=== PATIENT | female | born 1975 | race Caucasian/White ===

== ENCOUNTER 2020-03-09 11:47 | Outpatient (CLI) | payer BC, SELFPAY ==
--- NOTE | 2020-03-09 11:58 | MM_ITS ---
WS: [id number] BILATERAL DIGITAL SCREENING MAMMOGRAPHY WITH CAD CLINICAL INFORMATION: SCREEN HISTORY: Screening mammogram. No current complaints. COMPARISON: June 26, 2018 TECHNIQUE: Bilateral CC and MLO views. FINDINGS: The breasts are composed of heterogeneous fibroglandular density tissue, which can limit the detectio n of small underlying mass lesions. No suspicious mass, asymmetry, calcifications, or architectural d istortion. No evidence of malignancy. A few benign punctate calcifications. MM/[place] [id number] IMPRESSION: BI-RADS: 2-Benign FOLLOW UP: 1 Year Follow-up Recommend return to annual screening mammography.
== END 2020-03-09 11:48 | disposition home or self-care (01) ==
PROVIDERS: PCP Family Medicine; Visit Provider Obstetrics & Gynecology
DX: Z12.31 Encounter for screening mammogram for malignant neoplasm of breast (principal)
CPT/HCPCS: 77067

== ENCOUNTER → 2020-07-15 14:36 | Outpatient (BNVA) | payer BC, SELFPAY | PROVIDERS: PCP Family Medicine; Visit Provider Internal Medicine | DX: U07.1 COVID-19 (principal) | CPT/HCPCS: 87635 ==

== ENCOUNTER → 2022-08-18 15:14 | Outpatient (BNVA) | payer BC, SELFPAY | PROVIDERS: PCP Family Medicine; Visit Provider Nurse Practitioner Women's Health | DX: Z01.419 Encounter for gynecological examination (general) (routine) without abnormal findings (principal); R87.619 Unspecified abnormal cytological findings in specimens from cervix uteri; R10.2 Pelvic and perineal pain | CPT/HCPCS: 87624 ==

== ENCOUNTER 2022-10-14 06:59 | Outpatient (CLI) | payer BC, SELFPAY ==
--- NOTE | 2022-10-14 07:24 | MM_ITS ---
WS: [id number] Bilateral screening 3D tomosynthesis digital mammogram, 10/14/2022 Clinical Data: SCREEN Comparison: 03/09/2020 Findings: The breast parenchymal pattern shows heterogeneous density. No spiculated masses or clustered calcifi cations are seen. There are no secondary signs of carcinoma. The bilateral augmentation mammoplasties are intact. MM/[place] [id number] Impression: 1. Negative bilateral mammogram unchanged. 2. Recommend annual screening mammograms. BIRADS: 1-Negative FOLLOW UP: 1 Year Follow-up The CAD spot checker was used.
== END 2022-10-14 07:00 | disposition home or self-care (01) ==
LOC: RAD 07:01
PROVIDERS: PCP Family Medicine; Visit Provider Nurse Practitioner Women's Health
DX: Z12.31 Encounter for screening mammogram for malignant neoplasm of breast (principal)
CPT/HCPCS: 77063; 77067

== ENCOUNTER 2022-10-19 06:44 | Day surgery (SDC) | payer BC, SELFPAY ==
[2022-10-18 10:03] VITALS: BMI 19.3
[2022-10-18 10:33] LABS: Basophils % 0.6 %; Eosinophils # 0.1 10^3/uL (0.0-0.8); Eosinophils % 1.1 %; Hematocrit 40.4 % (37.0-47.0); Hemoglobin 13.5 g/dL (11.5-15.3); Lymphocytes # 0.4 10^3/uL (0.8-4.8); Lymphocytes % 6.6 %; Mean Corpuscular HGB Conc 33.4 g/dL (30.0-36.0); Mean Corpuscular Hemoglobin 30.5 pg (28.0-34.0); Mean Corpuscular Volume 91.2 fl (81-99); Mean Platelet Volume 9.4 fL (7.4-10.4); Monocytes # 0.5 10^3/uL (0.2-0.9); Neutrophils # 5.46 10^3/uL (1.8-7.7); Neutrophils % 84.4 %; Nucleated Red Blood Cells % 0 %; Platelet Count 252 10^3/cmm (130-400); Red Blood Count 4.43 10^6/uL (4.1-5.3); Red Cell Distribution Width 13.1 % (12.1-15.1); White Blood Count 6.5 10^3/uL (4.0-10.0)
[2022-10-18 10:41] LABS: Add Urine Microscopic? NO; Charge for UA Resulting for Rev
[2022-10-18 10:48] LABS: Bilirubin Urine Neg (Negative); Blood Urine Neg (Negative); Glucose Urine UA Norm (Normal); Ketones Urine Negative (Negative); Leukocyte Esterase Urine Negative (Negative); Nitrate Urine Negative (Negative); Protein Urine Neg (Negative); Specific Gravity, Urine 1.025 (1.005-1.030); Urine Appearance Clear (CLEAR); Urine Color Yellow (Yellow); Urobilinogen Urine 1 mg/dL (Negative); pH Urine 6 (5-7)
[2022-10-18 10:53] LABS: Alanine Aminotransferase 19 U/L (0-33); Albumin Level 4.4 g/dL (3.5-5.2); Alkaline Phosphatase 60 U/L (35-105); Anion Gap 10.8 (5-19); Aspartate Amino Transferase 21 U/L (0-32); Blood Urea Nitrogen 11 mg/dL (6-20); Calcium 8.9 mg/dL (8.5-10.5); Carbon Dioxide 26 mmol/L (22-29); Chloride 104 mmol/L (98-107); Globulin 3.1 g/dL (1.3-4.6); Glomerular Filtration Rate 108.1 mL/min (90-130); Glucose 86 mg/dL (65-115); Osmolality Calculated 283 mOsm/kg (285-295); Potassium 3.8 mmol/L (3.5-5.1); Sodium 137 mmol/L (136-145); Total Bilirubin 0.5 mg/dL (0.15-1.2); Total Protein 7.5 g/dL (6.6-8.7)
--- NOTE | 2022-10-18 11:12 | P.ANESASSM_ITS ---
Pre-Anesthetic Assessment Height/Weight: Height 1.68 m Weight 54.431 kg Operation Date: 10/19/22 08:20 Proposed Procedures p Perineorrhaphy 77759,N94.10,R10.2(Not Applicable) - Anjum Moreno MD Familial anesthetic complications: none Was Beta Katy taken within 24 hours: N/A Was Clonidine taken within 24 hours: N/A Social No alcohol and No tobacco Exam alert, oriented x 3, clear to auscultation bilaterally and regular rate & rhythm Airway Submandibular: within normal limits Cervical ROM: within normal limits Mallampati: Class II Dentition: full History/ROS No significant history except as noted Anesthetic Plan ASA status: 1 Anesthesia: General Medications/Allergies Home Medications Medication Instructions Recorded Confirmed Last Taken Type lactobacillus combination no.9 4 1 cell PO DAILY 08/18/22 10/18/22 Unknown History billion cell capsule (Adult 50 Plus Probiotic) Allergies Allergy/AdvReac Type Severity Reaction Status Date / Time shellfish derived Allergy ALGY-Rash Verified 10/18/22 10:01 Sulfa (Sulfonamide Allergy ADR-Nausea Verified 10/18/22 10:01 Antibiotics) [facility] Anesthesia Medical History (Updated 09/18/22 @ 18:48 by Anjum Moreno MD) Genital herpes No pertinent past medical history neghx: htn,dm,thyroid,dvt/pe PCP: Dr. Wallace--last seen before 2019 Surgical History (Updated 08/18/22 @ 15:34 by Pamela Alfredo APN, JEANNIE) Hx of breast augmentation (~2019) saline Hx of prior ablation treatment (~2007) uterine ablation; she did get after this and had a successful . Family History Mother Diabetes Hypertension Hypercholesteremia Grandmother Diabetes Maternal Hypertension Maternal and Paternal Stroke Maternal Uterine cancer Maternal---dx age unknown Denies family history of Colon cancer Ovarian cancer Heart disease Breast cancer Thyroid disease Social History Smoking and tobacco status: former smoker (quit in 2007) Data Anesthesia 10/18/22 10:15 10/18/22 10:15 Short CBC 10/18/22 Range/Units 10:15 WBC 6.5 (4.0-10.0) 10^3/uL Hgb 13.5 (11.5-15.3) g/dL Hct 40.4 (37.0-47.0) % MCV 91.2 (81-99) fl Plt Count 252 (130-400) 10^3/cmm Neut % (Auto) 84.4 % Neut # (Auto) 5.46 (1.8-7.7) 10^3/uL BMP 10/18/22 10:15 Sodium 137 Potassium 3.8 Chloride 104 Carbon Dioxide 26 BUN 11 Creatinine 0.6 Glucose 86 Calcium 8.9 Liver Function 10/18/22 Range/Units 10:15 Total Bilirubin 0.5 (0.15-1.2) mg/dL AST 21 (0-32) U/L ALT 19 (0-33) U/L Alkaline Phosphatase 60 (35-105) U/L Albumin 4.4 (3.5-5.2) g/dL Urine 10/18/22 Range/Units 10:30 Urine Color Yellow (Yellow) Urine Appearance Clear (CLEAR) Urine pH 6 (5-7) Ur Specific [place] 1.025 (1.005-1.030) Urine Protein Neg (Negative) Urine Glucose (UA) Norm (Normal) Urine Ketones Negative (Negative) Urine Nitrate Negative (Negative) Urine Bilirubin Neg (Negative) Ur Leukocyte Esterase Negative (Negative) Cardiac Studies: No Data to Display
[2022-10-18 21:37] LABS: OR HCG Qualitative Urine Negative (Negative)
[2022-10-19] VITALS (8 sets, daily range): BP systolic 96–142; BP diastolic 53–85; PULSE 50–80; RESP 16–18; TEMP 36.3–36.8; O2SAT 99–100
--- NOTE | 2022-10-19 07:08 | W.PM.OPSUD ---
Surgery/Procedure H&P Update DATE OF PROCEDURE: October 19, 2022 DATE H&P PERFORMED: 10/17/22 H&P UPDATE INFORMATION: I have reviewed H&P completed within last 30 days, I have examined patient prior to procedure and No changes to prior documentation PREOP DIAGNOSIS: Vaginal scar, perineal pain PLANNED PROCEDURE: Operation Date: 10/19/22 08:20 Proposed Procedures p Perineorrhaphy 42525,N94.10,R10.2(Not Applicable) - Anjum Moreno MD
[2022-10-19] MEDS: sodium chloride 0.9% 1,000 ML 30 ML IV (07:27)
[2022-10-19] MEDS: scopolamine 1.5 Patch 1 PATCH TRANSDERMA (07:28)
--- NOTE | 2022-10-19 08:38 | P.ANESUD_ITS ---
Pre-Anesthetic Update Pre-Anesthetic Assessment: Date of Surgery/Procedure: 10/19/22 Preop Twila gnosis: Vaginal scar, perineal pain Proposed Procedure: Operation Date: 10/19/22 08:20 Proposed Procedures p Perineorrhaphy 83305,N94.10,R10.2(Not Applicable) - Anjum Moreno MD Any changes to Pre-Anesthetic Assessment?: No Last Intake: Intake Last Liquid Date 10/18/22 Last Liquid Time 22:00 Last Solid Date 10/18/22 Last Solid Time 22:00 Labs Last 48hrs: Short CBC 10/18/22 Range/Units 10:15 WBC 6.5 (4.0-10.0) 10^3/ uL Hgb 13.5 (11.5-15.3) g/dL Hct 40.4 (37.0-47.0) % MCV 91.2 (81-99) fl Plt Count 252 (130-400) 10^3/c mm Neut % (Auto) 84.4 % Neut # (Auto) 5.46 (1.8-7.7) 10^3/u L BMP 10/18/22 10:15 Sodium 137 Potassium 3.8 Chloride 104 Carbon Dioxide 26 BUN 11 Creatinine 0.6 Glucose 86 Calcium 8.9 Liver Function 10/18/22 Range/Units 10:15 Total Bilirubin 0.5 (0.15-1.2) mg/dL AST 21 (0-32) U/L ALT 19 (0-33) U/L Alkaline Phosphata se 60 (35-105) U/L Albumin 4.4 (3.5-5.2) g/dL Urine 10/18/22 Range/Units 10:30 Urine Color Yellow (Yellow) Urine Appearance Clear (CLEAR) Urine pH 6 (5-7) Ur Specific Gravit y 1.025 (1.005-1.030) Urine Protein Neg (Negative) Urine Glucose (UA) Norm (Normal) Urine Ketones Negative (Negative) Urine Nitrate Negative (Negative) Urine Bilirubin Neg (Negative) Ur Leukocyte Aleida ase Negative (Negative) Blood Bank 10/18/22 10:15 Blood Type O Positive Rho(D) Type Positive Antibody Screen Negative Vitals: Temperature 97.4 F L 10/19/22 07:12 Temperature Source Temporal Artery S can 10/19/22 07:12 Pulse Rate 78 10/19/22 07:12 Respiratory Rate 18 10/19/22 07:12 Blood Pressure 142/78 10/19/22 07:12 Blood Pressure Cyndi n 99 10/19/22 07:12 Pulse Oximetry 100 10/19/22 07:12 Oxygen Delivery Me thod 10/19/22 07:15 Exam: Pre-Anes Outpt Exam: alert, oriented x 3, clear to auscultation bilaterally and regular rate & rhythm Cardiac Studies: No Data to Display
[2022-10-19] MEDS: ceFAZolin 2,000 MG in sodium chloride 0.9% (plus) 50 ML 100 MG IV (09:13)
--- NOTE | 2022-10-19 10:29 | PM.OP ---
Operative Report Date of procedure: October 19, 2022 Pre-op diagnosis: Preop Diagnosis Vaginal scar, perineal pain Post-op diagnosis: Same as above Post-op findings: Same as above Procedure done: Perineorrhaphy Surgeon: Anjum Moreno MD Estimated blood loss (mL): 10 IV fluids (mL): 800 Urine output (mL): 10 Complications: None Procedure: After obtaining informed consent, the patient was taken to the operating room and placed in the supine position, given general anesthesia, and prepped and draped in sterile fashion. The abdomen, vulva and vagina were prepped and draped in a sterile manner. A time out procedure was performed. The vaginal mucosa was then injected with 1% lidocaine with epinephrine. An incision was made across the introitus. Metzenbaum scissors were used to tunnel beneath posterior vaginal mucosa until the apex of the vaginal scar was reached in a laureano shape. At this point, the rectum was from the posterior vaginal mucosa using sharp and blunt dissection, and area was imbricated in the midline with interrupted sutures of 2-0 vicryl suture. Levator ani muscles on either side were approximated in the midline with interrupted 0 Vicryl sutures. The scared vaginal mucosa was excised, and the vaginal episiotomy was repaired by approximating the posterior vaginal mucosa with a suture of Vicryl 3-O in a subcuticular fashion.
--- NOTE | 2022-10-19 15:29 | ANE.PACU2 ---
Inpatient post-anesthesia follow up: Airway intact: Yes Vital signs: Temperature 98.2 F Pulse Rate 50 Respiratory Rate 18 Blood Pressure 108/75 Pulse Oximetry 100 Oxygen Delivery Me thod Room Air Oxygen Flow Rate 6 Fraction of Inspir ed Oxygen Hydration adequate: Yes Nausea and vomiting: No Pain level: 2 Mental status: Baseline
== END 2022-10-19 11:52 | disposition home or self-care (01) ==
PROVIDERS: PCP Nurse Practitioner Women's Health; Visit Provider Obstetrics & Gynecology
PROC: 0HQ9XZZ Repair Perineum Skin, External Approach (ICD-10-PCS; CPT 56810; principal; 2022-10-19 08:10)
DX: N89.8 Other specified noninflammatory disorders of vagina (principal); Z87.891 Personal history of nicotine dependence
CPT/HCPCS: 56810; 36415; 80053; 81003; 81025; 84703; 85025; 86850; 86900; J0690; J1100; J1885; J2250; J2405; J2704; J2710; J3010; J3490; J7030

== ENCOUNTER → 2023-08-28 16:00 | Outpatient (BNVA) | payer BC, SELFPAY | PROVIDERS: PCP Nurse Practitioner Women's Health; Visit Provider Nurse Practitioner Women's Health | DX: Z12.11 Encounter for screening for malignant neoplasm of colon (principal); Z01.419 Encounter for gynecological examination (general) (routine) without abnormal findings; Z11.3 Encounter for screening for infections with a predominantly sexual mode of transmission | CPT/HCPCS: 86592; 86803; 87340; 87624; 87806 ==

== ENCOUNTER 2023-11-06 08:35 | Outpatient (CLI) | payer BC, SELFPAY ==
--- NOTE | 2023-11-06 08:40 | MM_ITS ---
WS: [id number] BILATERAL SCREENING DIGITAL BREAST MAMMOGRAPHY WITH DARREN DISPLACEMENT VIEWS. CAD PERFORMED. HISTORY: Z12.31 - Encounter for screening mammogram for malignant ... COMPARISON: 10/14/2022, 03/09/2020 Bilateral craniocaudal and mediolateral oblique views are performed with tomosynthesis and SM. Darren displacement views in CC and MLO projection also performed. Breasts composition: There are scattered areas of fibroglandular density. Implants are intact and retropectoral. Benign calcifications within each breast. IMPRESSION: MM/[place] [id number] BI-RADS: 2-Benign FOLLOW-UP: 1 Year Follow-up
== END 2023-11-06 08:36 | disposition home or self-care (01) ==
LOC: RAD 08:35
PROVIDERS: PCP Nurse Practitioner Women's Health; Visit Provider Nurse Practitioner Women's Health
DX: Z12.31 Encounter for screening mammogram for malignant neoplasm of breast (principal)
CPT/HCPCS: 77063; 77067

== ENCOUNTER 2023-12-14 07:06 | Day surgery (SDC) | payer BC, SELFPAY ==
--- NOTE | 2023-12-14 06:35 | W.PM.OPSFHP ---
Same Day Surgery H&P Indication for Procedure/HPI DATE OF PROCEDURE: December 14, 2023 CHIEF COMPLAINT/INDICATIONFOR SURGICAL PROCEDURE: need for screening colonocopy PREOP DIAGNOSIS: need for screening colonoscopy PLANNED PROCEDURE: Operation Date: 12/14/23 08:20 [place] [address] colon G0121 screen colon A risk <z12.11(Not Applicable) - Bret Stover MD Medications/Allergies* Home Medications Medication Instructions Recorded Confirmed Type lactobacillus combination no.9 4 1 cell PO DAILY 08/18/22 12/12/23 History billion cell capsule (Adult 50 Plus Probiotic) Allergies/Adverse Reactions Allergy/AdvReac Type Severity Reaction Status Date / Time shellfish derived Allergy ALGY-Rash Verified 12/12/23 09:12 Sulfa (Sulfonamide Allergy ADR-Nausea Verified 12/12/23 09:12 Antibiotics) Pertinent History/Comorbid Conditions* Medical History (Updated 08/28/23 @ 15:24 by Pamela Alfredo APN, JEANNIE) Abnormal Pap smear of cervix Genital herpes No pertinent past medical history neghx: htn,dm,thyroid,dvt/pe PCP: Dr. Wallace--last seen before 2019 Surgical History (Updated 08/28/23 @ 15:24 by Pamela Alfredo APN, JEANNIE) History of perineoplasty (~10/19/22) performed by Dr. Moreno at [facility] for perineal pain Hx of prior ablation treatment (~2007) uterine ablation; she did get after this and had a successful . Hx of breast augmentation (~2019) saline Family History (Updated 08/18/22 @ 14:50 by Cyndi Griggs) Diabetes Mother Grandmother Maternal Hypercholesteremia Mother Hypertension Mother Grandmother Maternal and Paternal Uterine cancer Grandmother Maternal---dx age unknown Stroke Grandmother Maternal Denies family history of Colon cancer Ovarian cancer Heart disease Breast cancer Thyroid disease Social History Smoking and tobacco/nicotine status: former use of tobacco/nicotine (quit in 2007) Pertinent Exam Findings alert, oriented x 3, clear to auscultation bilaterally and regular rate & rhythm Recommendations Surgery/Procedure today Coding Level of Care Code Acute Code for Chg Fwd
[2023-12-14 07:20] LABS: OR HCG Qualitative Urine Negative (Negative)
[2023-12-14 07:23] VITALS: BP 113/66; PULSE 77; RESP 18; TEMP 37.2; O2SAT 99
[2023-12-14 07:24] VITALS: BMI 18.6
[2023-12-14] MEDS: sodium chloride 0.9% 1,000 ML 30 ML IV (07:24)
--- NOTE | 2023-12-14 07:33 | ANES.PREANE2 ---
Pre-Anesthetic Assessment Height/Weight: Height 1.68 m Weight 52.163 kg Temp Pulse Resp BP Pulse Ox O2 Del Method 98.9 F 77 18 113/66 99 Room Air 12/14/23 07:23 12/14/23 07:23 12/14/23 07:23 12/14/23 07:23 12/14/23 07:23 12/14/23 07:23 Preop Diagnosis: need for screening colonoscopy Operation Date: 12/14/23 08:20 Proposed Procedures p 42638 colon G0121 screen colon A risk <z12.11(Not Applicable) - Bret Stover MD Familial anesthetic complications: Difficulty waking up Was Beta Katy taken within 24 hours: N/A Was Clonidine taken within 24 hours: N/A Last intake: Intake Last Liquid Date 12/13/23 Last Liquid Time 23:30 Last Solid Date 12/12/23 Social No alcohol and No tobacco Exam alert, oriented x 3, clear to auscultation bilaterally and regular rate & rhythm Airway Submandibular: within normal limits Cervical ROM: within normal limits Mallampati: Class II Dentition: full History/ROS No significant history except as noted and No significant complaints Pulmonary None reported CV/HEM Anemia None reported Hepatic None reported GI None reported Metabolic None reported Musc/skel None reported Neuropsych Anxiety Anesthetic Plan ASA status: 1 Anesthesia: Anesthesia Evaluation, General and MAC Risk of > 500 ml blood loss (7ml/kg in children): No Medications/Allergies Home Medications Medication Instructions Recorded Confirmed Last Taken Type lactobacillus combination no.9 4 1 cell PO DAILY 08/18/22 12/12/23 12/12/23 History billion cell capsule (Adult 50 Plus Probiotic) Allergies Allergy/AdvReac Type Severity Reaction Status Date / Time shellfish derived Allergy ALGY-Rash Verified 12/12/23 09:12 Sulfa (Sulfonamide Allergy ADR-Nausea Verified 12/12/23 09:12 Antibiotics) Current Medications Generic Name Dose Route Start Last Admin Trade Name Freq PRN Reason Stop Dose Admin Sodium Chloride 1,000 mls @ 30 mls/hr 12/14/23 07:15 12/14/23 07:24 Sodium Chloride 0.9% IV 12/15/23 07:14 30 mls/hr .Q24H STEPHEN Administration PFSH Anesthesia Medical History Abnormal Pap smear of cervix Genital herpes No pertinent past medical history neghx: htn,dm,thyroid,dvt/pe PCP: Dr. Wallace--last seen before 2019 Surgical History History of perineoplasty (~10/19/22) performed by Dr. Moreno at [facility] for perineal pain Hx of breast augmentation (~2019) saline Hx of prior ablation treatment (~2007) uterine ablation; she did get after this and had a successful . Family History Mother Diabetes Hypertension Hypercholesteremia Grandmother Diabetes Maternal Hypertension Maternal and Paternal Stroke Maternal Uterine cancer Maternal---dx age unknown Denies family history of Colon cancer Ovarian cancer Heart disease Breast cancer Thyroid disease Social History Smoking and tobacco/nicotine status: former use of tobacco/nicotine (quit in 2007) Data Anesthesia Cardiac Studies: No Data to Display
[2023-12-14 08:31] VITALS: BP 86/51; PULSE 88; RESP 10; TEMP 36.7; O2SAT 96
[2023-12-14 08:43] VITALS: BP 97/69; PULSE 78; RESP 18; O2SAT 95
--- NOTE | 2023-12-14 13:16 | ANE.PACU2 ---
Inpatient post-anesthesia follow up: Airway intact: Yes Vital signs: Temperature 98.0 F Pulse Rate 78 Respiratory Rate 18 Blood Pressure 97/69 Pulse Oximetry 95 Oxygen Delivery Me thod Room Air Oxygen Flow Rate Fraction of Inspir ed Oxygen Hydration adequate: Yes Nausea and vomiting: No Pain level: 2 Mental status: Baseline
== END 2023-12-14 09:03 | disposition home or self-care (01) ==
PROVIDERS: Anesthesiology; PCP Nurse Practitioner Women's Health; Visit Provider Surgery
PROC: 0DJD8ZZ Inspection of Lower Intestinal Tract, Via Natural or Artificial Opening Endoscopic (ICD-10-PCS; CPT 45378; principal; 2023-12-14 08:20)
DX: Z12.11 Encounter for screening for malignant neoplasm of colon (principal); K64.8 Other hemorrhoids; Z87.891 Personal history of nicotine dependence
CPT/HCPCS: 45378; 81025; 84703; J2704; J3490; J7030

== ENCOUNTER 2025-02-12 12:37 | Outpatient (CLI) | payer OTHER, BC, SELFPAY ==
--- NOTE | 2025-02-12 12:39 | MM_ITS ---
WS: [id number] BILATERAL 3D TOMOSYNTHESIS DIGITAL SCREENING MAMMOGRAPHY WITH CAD CLINICAL INFORMATION: SCREENING HISTORY: Screening mammogram. No current complaints. COMPARISON: 2023 TECHNIQUE: Bilateral CC and MLO views. FINDINGS: Intact breast implants Scattered fibroglandular densities bilaterally. No suspicious focal mass, asymmetry, calcifications, or architectural distortion. No evidence of malignancy. A few tiny incidental punctate calcifications. MM/MM scr tomosynthesis [id number] IMPRESSION: DENSITY: There are scattered areas of fibroglandular density. BI-RADS: 2 - Benign. FOLLOW UP: 1 Year Follow-up Recommend return to annual screening mammography.
== END 2025-02-12 12:38 | disposition home or self-care (01) ==
LOC: RAD 12:38
PROVIDERS: PCP Nurse Practitioner Women's Health; Visit Provider Nurse Practitioner Women's Health
DX: Z12.31 Encounter for screening mammogram for malignant neoplasm of breast (principal); R61 Generalized hyperhidrosis; R53.83 Other fatigue; Z01.419 Encounter for gynecological examination (general) (routine) without abnormal findings; R92.323 Mammographic fibroglandular density, bilateral breasts; Z98.82 Breast implant status
CPT/HCPCS: 77063; 77067; 82306; 82607; 82728; 83036; 83540; 84439; 84443; 85025; 87624

== ENCOUNTER → 2025-04-24 13:54 | Outpatient (BNVA) | payer OTHER, BC, SELFPAY | PROVIDERS: PCP Nurse Practitioner Women's Health; Visit Provider Nurse Practitioner Women's Health | DX: Z30.014 Encounter for initial prescription of intrauterine contraceptive device (principal) | CPT/HCPCS: 81025 ==